=== PATIENT | male | born 1990 | race African-American/Black ===

== ENCOUNTER 2023-11-30 20:37 | Emergency (ER) | payer BC, OTHER ==
[2023-11-30 20:47] VITALS: BMI 32.1
[2023-11-30] MEDS: LIDOCAINE PATCH REMOVAL MC SCH (21:59)
[2023-11-30] MEDS ORDERED: LIDOCAINE 5% TOPICAL PATCH ONE (22:01)
[2023-11-30] MEDS ORDERED: METHOCARBAMOL 500 MG TABLET ONE (22:01)
[2023-11-30] MEDS ORDERED: KETOROLAC TROMETHAMINE 15 MG/ML VIAL ONE (22:02)
[2023-11-30 22:05] LABS: BASO % 0.4 % (0-2.0); HEMATOCRIT 40.6 % (35.4-49); HEMOGLOBIN 13.3 GM/dL (11.7-16.9); LYMPH % 21.8 % (8-40); MCH 27.8 pg (25.7-33.7); MCHC 32.7 g/dl (32.0-35.9); MEAN CELL VOLUME 84.9 fl (80-96); MEAN PLT VOLUME 6.8 fl (7.5-11.1); MONO % 9.6 % (3.8-10.2); NEUT % 67.2 % (42.8-82.8); PLATELET COUNT 411 10^3/uL (134-434); RBC 4.78 M/mm3 (4.00-5.60); RDW 13.2 % (11.9-15.9); WHITE BLOOD COUNT 11.4 K/mm3 (4.0-10.0)
[2023-11-30] MEDS: LIDOCAINE 5% TOPICAL PATCH TP ONE (22:14)
[2023-11-30] MEDS: METHOCARBAMOL 500 MG TABLET PO ONE (22:15)
[2023-11-30] MEDS: KETOROLAC TROMETHAMINE 15 MG/ML VIAL IVPUSH ONE (22:15)
[2023-11-30 22:23] LABS: POTASSIUM 3.8 mmol/L (3.5-5.1)
[2023-11-30 22:25] LABS: CALCIUM 9.2 mg/dL (8.5-10.1)
[2023-11-30 22:26] LABS: ALBUMIN 3.9 g/dl (3.4-5.0); BLOOD UREA NITROGEN 20.5 mg/dL (7-18)
[2023-11-30 22:31] LABS: BILIRUBIN,TOTAL 0.4 mg/dL (0.2-1)
[2023-11-30] MEDS: SODIUM CHLORIDE 0.9% 500 ML INFUS.BAG IV ONE (23:00)
[2023-12-01 01:08] VITALS: BP 126/71; PULSE 103; RESP 20; TEMP 99.2
== END 2023-12-01 01:44 | disposition home or self-care (01) ==
LOC: JER 20:37
PROC: 3E0333Z Introduction of Anti-inflammatory into Peripheral Vein, Percutaneous Approach (ICD-10-PCS; principal; 2023-11-30)
DX: M54.41 Lumbago with sciatica, right side (principal); R00.0 Tachycardia, unspecified
CPT/HCPCS: 36415; 72100-TC-FY; 73502-TC-RT-FY; 80053; 84443; 85025; 85379; 93005; 93010; 99285-25